=== PATIENT | male | born 1995 | race Caucasian/White ===

== ENCOUNTER 2020-06-09 12:18 | Emergency (ER) | payer SELFPAY ==
[~2020-06-09] VITALS: Ht 165.1 cm; Wt 83.9 kg
[2020-06-09 12:24] VITALS: Ht 165.1 cm; Wt 83.9 kg
[2020-06-09 12:54] VITALS: BP 117/74
== END 2020-06-09 12:54 | disposition home or self-care (01) ==
LOC: ED 12:18
DX: F15.10 Other stimulant abuse, uncomplicated (principal); B86 Scabies

== ENCOUNTER 2020-06-09 13:59 | Emergency (ER) | payer SELFPAY ==
[~2020-06-09] VITALS: Ht 182.9 cm; Wt 100.7 kg
[2020-06-09 14:11] VITALS: Ht 182.9 cm; Wt 100.7 kg
[2020-06-09 15:42] VITALS: BP 110/72
== END 2020-06-09 15:42 | disposition home or self-care (01) ==
LOC: ED 13:59
DX: R44.0 Auditory hallucinations (principal); F15.21 Other stimulant dependence, in remission; Z86.59 Personal history of other mental and behavioral disorders